=== PATIENT | female | born 1985 ===

== ENCOUNTER → 2016-07-03 | Outpatient (CLI) | payer MEDICARE, OTHER ==
[~2016-07-03] MED LIST: ACET250T2 PO; ALBU2.5V5 NEB; CELE50CA PO; FLUT1DIS3 IH; GABA800T2 PO; GADOBUTROL 7.5 MMOL/7.5 ML VIAL IV ONE; IPRA12.92 IH; PROAIR HFA8.5 GM INH; SIMV10TA3 PO
--- NOTE | 2016-07-03 16:24 | KCIC ---
PROCEDURE MRI of the brain without and with contrast 07/03/2016 HISTORY Follow-up cavernous angioma. TECHNIQUE Unenhanced T1 weighted sagittal and axial and FLAIR, gradient echo and diffusion weighted axial images of the brain were obtained. After the intravenous administration of 14 cc of Gadavist, enhanced T1 weighted axial and coronal images of the brain were obtained. FINDINGS Comparison study is dated 07/02/2015. The ventricles and sulci are within normal limits in size and configuration. On the gradient echo images a rounded area of decreased signal intensity is seen involving the posterior right temporal lobe. This measures 5 millimeters in greatest diameter. Is consistent with a cavernous angioma. It is unchanged. There is no surrounding edema or associated mass effect. No acute parenchymal abnormality is seen. No extra-axial fluid collection is noted. There is no MRI evidence of acute ischemia/infarction. No area of significant abnormal contrast enhancement is seen. Mild mucosal thickening is seen scattered throughout the paranasal sinuses. Normal flow voids are seen within the major vascular structures surrounding the brain parenchyma. There are minimal bilateral mastoid effusions. IMPRESSION Stable MRI appearance of the 5 millimeter cavernous angioma involving the right temporal lobe. No acute parenchymal abnormality is seen. Electronically signed by: Anupam Lara MD (Jul 03, 2016 16:22:59)
== END | disposition home or self-care (01) ==
LOC: KCIC MRI 12:23
PROVIDERS: ATTEND Psychiatry & Neurology Neurology with Special Qualifications in Child Neurology
DX: D18.09 Hemangioma of other sites (principal)
CPT/HCPCS: 70553; A9585

== ENCOUNTER → 2016-07-22 | Outpatient (CLI) | payer MEDICARE, OTHER ==
[~2016-07-22] MED LIST changes: -GADOBUTROL 7.5 MMOL/7.5 ML VIAL IV ONE
--- NOTE | 2016-07-22 14:57 | KCIC ---
PROCEDURE MR of the right knee HISTORY Right knee pain. TECHNIQUE Routine multiplanar sequences are obtained. COMPARISON None FINDINGS There is metal artifact at the medial aspect of the knee, resulting in image degradation and failure of fat suppression. Medial joint compartment and medial meniscus are not visualized, and medial collateral ligament is also obscured by the artifact. No evidence of a lateral meniscal tear. The anterior and posterior cruciate ligaments are partially obscured by the artifact but no obvious acute rupture. Iliotibial band unremarkable. Fibular collateral ligament, biceps femoris tendon and popliteus tendon are intact. Extensor mechanism is intact. There is lateral patellar tilt and subluxation. Tibial tubercle-trochlear groove distance measures 27 millimeter. Small joint effusion. Articular cartilage at the lateral joint compartment appears grossly intact. 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 Evaluation of bones and bone marrow may be limited by the failure of fat suppression due to the metal artifact. There is some heterogeneity of marrow on T1 weighted images, particularly at the metadiaphysis the long bones, most likely represents areas of red marrow reconversion. IMPRESSION 1. Lateral patellar tilt and subluxation. Tibial tubercle lateralization measures 27 mm. 2. Obscuration of the medial aspect of the knee by metal artifact. 3. Heterogeneous marrow signal at the meta diaphyses, most likely indicates red marrow reconversion. This can occur following systemic stress such as hypoxia, or in patients with history of smoking or obesity. Electronically signed by: Michael Tapia MD (Jul 22, 2016 14:56:02)
== END | disposition home or self-care (01) ==
LOC: KCIC MRI 13:45
PROVIDERS: ATTEND Nurse Practitioner Family
DX: S83.011A Lateral subluxation of right patella, initial encounter (principal); X58.XXXA Exposure to other specified factors, initial encounter; Y93.89 Activity, other specified; Y92.89 Other specified places as the place of occurrence of the external cause; Y99.8 Other external cause status
CPT/HCPCS: 73721